=== PATIENT | male | born 1990 | race Caucasian/White ===

== ENCOUNTER 2019-02-28 01:46 | Emergency (ER) | payer MEDICARE ==
[~2019-02-28] VITALS: Ht 177.8 cm; Wt 115.7 kg
--- NOTE | 2019-02-28 20:15 | EKG ---
[facility] [address] [facility] [place] [address] Signed Sinus tachycardia Voltage criteria for left ventricular hypertrophy Abnormal ECG No previous ECGs available Confirmed by NICK BENITEZ DO ([id number]) on 02/28/2019 8:15:04 PM Electronically Signed By: NICK BENITEZ DO 02/28/19 2015 PATIENT NAME: ADRY WATKINS BINA Electrocardiogram DATE OF : 89 PHYSICIAN: NICK BENITEZ DO REPORT #: [id number] REPORT IS CONFIDENTIAL AND NOT TO BE RELEASED WITHOUT AUTHORIZATION
== END 2019-02-28 04:30 | disposition home or self-care (01) ==
LOC: ED 01:46
DX: J06.9 Acute upper respiratory infection, unspecified (principal); I10 Essential (primary) hypertension
CPT/HCPCS: 71046; 80053; 81001; 83735; 84484; 85025; 85379; 87502; 93005; 93010; 96374; 99285-25

== ENCOUNTER 2022-10-01 06:25 | Emergency (ER) | payer MEDICARE ==
[~2022-10-01] VITALS: Ht 177.8 cm; Wt 131.5 kg
[2022-10-01 08:09] VITALS: BP 171/116
--- NOTE | 2022-10-05 19:32 | EKG ---
[facility] [address] [facility] [place] [address] Signed Supraventricular tachycardia Marked ST abnormality, possible inferior subendocardial injury Marked ST abnormality, possible anterolateral subendocardial injury Abnormal ECG compared to previous 02/28/2019, supraventricular tachycardia now present Confirmed by CARINE VALADEZ MD ([id number]) on 10/05/2022 7:31:47 PM Electronically Signed By: CARINE VALADEZ 10/05/221931 PATIENT NAME: ADRY WATKINS BINA Electrocardiogram DATE OF : [birth year] PHYSICIAN: CARINE VALADEZ REPORT #: [id number] REPORT IS CONFIDENTIAL AND NOT TO BE RELEASED WITHOUT AUTHORIZATION
--- NOTE | 2022-10-05 19:33 | EKG ---
[facility] [address] [facility] [place] [address] Signed Normal sinus rhythm Incomplete right bundle branch block Nonspecific ST and T wave abnormality Abnormal ECG compared to previous, supraventricular tachycardia no longer present. Confirmed by CARINE VALADEZ MD ([id number]) on 10/05/2022 7:33:08 PM Electronically Signed By: CARINE VALADEZ 10/05/221932 PATIENT NAME: ADRY WATKINS BINA Electrocardiogram DATE OF : [birth year] PHYSICIAN: CARINE VALADEZ REPORT #: [id number] REPORT IS CONFIDENTIAL AND NOT TO BE RELEASED WITHOUT AUTHORIZATION
== END 2022-10-01 08:17 | disposition home or self-care (01) ==
LOC: ED 06:25
DX: I47.1 Supraventricular tachycardia (principal); I10 Essential (primary) hypertension
CPT/HCPCS: 36415; 80053; 83735; 84484; 85025; 92960; 93005; 93010; 99152; 99153; 99285 25; A9270; J7121

== ENCOUNTER 2023-09-03 03:24 | Emergency (ER) | payer MEDICARE ==
[~2023-09-03] VITALS: Ht 177.8 cm; Wt 106.0 kg
[2023-09-03] MEDS ORDERED: LACTATED RINGER'S 1,000 ML IV ONE (03:45)
[2023-09-03] MEDS ORDERED: METOPROLOL TARTRATE 5 MG/5 ML VIAL IV ONE (03:45)
[2023-09-03] MEDS ORDERED: AMLODIPINE BESY10 MG PO (03:50)
[2023-09-03] MEDS ORDERED: METOPROLOL SUC100 MG PO (03:50)
[2023-09-03 04:04] LABS: BASOPHILS 1.2 % (0-2); EOSINOPHILS 2.8 % (0-6); HEMOGLOBIN 14.8 g/dL (12.0-18.0); LYMPHOCYTES 24.4 % (24-44); MCH 29.5 (27-36); MCHC 32.9 g/dl (30-36); MCV 89.4 fl (81-99); MONOCYTES 6.9 % (0-12); NEUTROPHILS 64.7 % (39-80); PLATELET COUNT 344 K/uL (140-440); RBC 5.03 M/ul (4.3-5.7); RDW 14.1 (10.5-15.0)
[2023-09-03 04:20] LABS: BILIRUBIN, URINE NEGATIVE (negative); BLOOD/HGB, URINE TRACE-I (Negative); KETONE, URINE NEGATIVE (Negative); LEUK ESTERASE, URINE NEGATIVE (negative); NITRITE, URINE NEGATIVE (negative)
[2023-09-03 04:24] LABS: CHOLESTEROL/HDL RATIO 5.2
[2023-09-03 04:32] LABS: BACTERIA, URINE RARE /hpf (negative); CASTS, URINE HYALINE 1+ \\lpf; COLLECTION TYPE, URINE CLEAN CATCH; CRYSTALS, URINE NONE SEEN (0-1+); EPITHELIAL CELLS, URINE SQUAMOUS 1+ /lpf (0-1+); REFLEX CULTURE, URINE No (No)
[2023-09-03 04:33] LABS: TSH, 3RD GENERATION 4.072 uIU/mL (0.358-3.740)
[2023-09-03 04:34] LABS: ALBUMIN 3.5 g/dL (3.4-5.0); ALBUMIN/GLOBULIN RATIO 0.83 (1.1-2.4); ANION GAP 15.4 (7-21); BILIRUBIN, TOTAL 0.3 ng/dL (0.2-1.0); BUN/CREATININE RATIO 12.34 (6.0-28.6); CALCIUM 8.9 mg/dL (8.5-10.1); CREATININE, SERUM 0.81 mg/dL (0.70-1.30); POTASSIUM 3.4 mmol/L (3.5-5.1); PROTEIN, TOTAL 7.7 g/dL (6.4-8.2)
[2023-09-03] MEDS ORDERED: METOPROLOL SUCCINATE 50 MG TABCR PO ONE (05:45)
[2023-09-03] MEDS ORDERED: AMLODIPINE BESYLATE 10 MG TAB PO ONE (05:45)
[2023-09-03 06:53] VITALS: BP 171/103
--- NOTE | 2023-09-05 07:40 | EKG ---
[facility] [address] [facility] [place], [place] [address] Signed Sinus tachycardia Otherwise normal ECG No previous ECGs available Confirmed by BRODERICK BROOKS MD ([id number]) on 09/05/2023 7:39:48 AM Electronically Signed By: BRODERICK BROOKS 09/05/23 0740 PATIENT NAME: ADRY WATKINS BINA Electrocardiogram DATE OF : [birth year] PHYSICIAN: BRODERICK BROOKS REPORT #: [id number] REPORT IS CONFIDENTIAL AND NOT TO BE RELEASED WITHOUT AUTHORIZATION
== END 2023-09-03 06:45 | disposition home or self-care (01) ==
LOC: ED 03:24
PROVIDERS: Internal Medicine
DX: I47.10 Supraventricular tachycardia, unspecified (principal); I10 Essential (primary) hypertension; Z88.8 Allergy status to other drugs, medicaments and biological substances; Z88.5 Allergy status to narcotic agent; Z79.899 Other long term (current) drug therapy
CPT/HCPCS: 36415; 71045; 80053; 80061; 81001; 83605; 83735; 83880; 84443; 84484; 85025; 85379; 87040; 93005; 93010; 96374; 99285-25; J7121